=== PATIENT | female | born 2000 | race Asian ===

== ENCOUNTER 2020-04-15 22:30 | Emergency (ER) | payer SELFPAY ==
[~2020-04-15] VITALS: Ht 157.5 cm; Wt 73.0 kg
[2020-04-15 22:38] VITALS: BP 136/84
[2020-04-15 23:40] LABS: BACTERIA,URINE 0 /HPF (0-FEW); BILIRUBIN,URINE NEG (NEG); CLARITY,URINE CLEAR; COLOR,URINE YELLOW; GLUCOSE,URINE NEG (NEG); NITRITE,URINE NEG (NEG); RBC,URINE 0 /HPF (0-2); SQUAMOUS EPITHELIAL CELL,UR OCC /LPF; UROBILINOGEN,URINE 0.2 mg/dL (0.2 mg/dL); WBC,URINE OCC /HPF (0-4)
[2020-04-15 23:52] LABS: INFLUENZA A PATIENT NEGATIVE (NEGATIVE); INFLUENZA B PATIENT NEGATIVE (NEGATIVE)
[2020-04-16] MEDS ORDERED: ONDA4TAB7 PO (00:13)
--- NOTE | 2020-04-16 00:13 | PHYS DOC ---
Past History Past Medical History: No Pertinent History Past Surgical History: No Surgical History Alcohol Use: None Adult General Chief Complaint Chief Complaint: COUGH HPI HPI Patient is a 20-year-old female who presents to the emergency room complaining of diffuse body aches, headache, nausea, cough. This has been ongoing for the last 3 or 4 days. Patient was exposed to novel coronavirus 19 2 weeks ago. She did test last week that was negative. She did take some Tylenol prior to arrival. Patient reports that she is 4 weeks . She denies any lower abdominal pain, cramping, vaginal bleeding, vaginal discharge. She does not have any significant shortness of breath. She denies any difficulty with her daily activities. Review of Systems Review of Systems Complete ROS is negative unless otherwise documented in [facility] Allergies Allergies Allergies Coded Allergies Type Severity Reaction Last Updated Verified No Known Drug Allergies 04/15/20 No Physical Exam Physical Exam General: Awake, alert, NAD. Well Nourished, well hydrated. Cooperative HEENT: Atraumatic, EOMI, PERRL, airway patent, moist oral mucosa Neck: Supple, trachea midline Respiratory: CTA bilaterally, normal effort, no wheezing/crackles CV: RRR, no murmur, cap refill <2 GI: Soft, nondistended, nontender, no masses MSK: No obvious deformities Skin: Warm, dry, intact Neuro: A&O x3, speech NL, sensory and motor grossly intact, no focal deficits Psych: Normal affect, normal mood, not suicidal or homicidal Current Patient Data Vital Signs Vital Signs Date Time Temp Pulse Resp B/P (MAP) Pulse Ox O2 Delivery O2 Flow Rate FiO2 04/15/20 22:38 98.0 82 18 136/84 (101) 98 Room Air Lab Results Laboratory Tests Test 04/15/20 23:00 Urine Collection Type Unknown Urine Color Yellow Urine Clarity Clear Urine pH 6.5 Urine Specific [place] 1.020 Urine Protein Neg (NEG-TRACE) Urine Glucose (UA) Neg mg/dL (NEG) Urine Ketones (Stick) Neg mg/dL (NEG) Urine Blood Neg (NEG) Urine Nitrite Neg (NEG) Urine Bilirubin Neg (NEG) Urine Urobilinogen Dipstick 0.2 mg/dL (0.2 mg/dL) Urine Leukocyte Esterase Neg (NEG) Urine RBC 0 /HPF (0-2) Urine WBC Occ /HPF (0-4) Urine Squamous Epithelial Cells Occ /LPF Urine Bacteria 0 /HPF (0-FEW) Influenza Type A (Rapid) Negative (NEGATIVE) Influenza Type B (Rapid) Negative (NEGATIVE) EKG EKG [] Radiology/Procedures Radiology/Procedures [] Heart Score Risk Factors: Risk Factors: DM, Current or recent (<one month) smoker, HTN, HLP, family history of CAD, obesity. Risk Scores: Risk Factors: DM, Current or recent (<one month) smoker, HTN, HLP, family history of CAD, obesity. Course & Med Decision Making Course & Med Decision Making Pertinent Labs and Imaging studies reviewed. (See chart for details) Patient is 20-year-old previously healthy female at 4 weeks gestation who presents to the emergency room with symptoms that are consistent with novel coronavirus 19. Patient has had an exposure. She is very well-appearing on exam. Influenza swab was done and is negative. UA is negative. At this time I have recommended to the patient that she does symptomatic care. We have discussed strict return precautions. We have discussed quarantine. Patient's test results and vitals while in the ED were fully reviewed and discussed with the patient. Patient is stable and at this time does not need admission to the hospital. We have discussed strict return precautions and the importance of following up with their Primary Care Physician. Patient stated understanding and was given an opportunity to ask any questions. Patient is in agreement with plan. Dragon Disclaimer Dragon Disclaimer This electronic medical record was generated, in whole or in part, using a voice recognition dictation system. Departure Departure: Impression: Primary Impression: Suspected 2019-nCoV infection Disposition: 01 DC HOME SELF CARE/HOMELESS Condition: STABLE Patient Instructions: Medicines During Additional Instructions: Thank you for visiting [facility]. We appreciate you trusting us with your care. If any additional problems come up please don't hesitate to return to visit us. Follow up with your primary care provider so they can plan additional care if needed and know about the problem that you had today. If symptoms worsen come back to the Emergency Department. Any concerning symptoms that start such as chest pain, shortness of air, weakness or numbness on one side of the body, running high fevers or any other concerning symptoms return to the ER. You have a viral syndrome which may include symptoms like muscle aches, fevers, chills, runny nose, cough, sneezing, sore throat, nausea, vomiting, or diarrhea. One of the potential viruses that you may have is SARS-CoV-2, the virus that causes COVID-19, also known as the Coronavirus. You are just as likely to have a different viral infection such as the common cold, flu, etc. Most patients with the Coronavirus have mild symptoms and recover on their own. Resting, staying hydrated, and sleep based on known cases can be helpful. As of todays visit, you are well enough to go home and treat your symptoms with oral fluids and over the counter medications. Coronavirus testing is not performed on most people with mild symptoms who are being discharged from the emergency department. If Coronavirus testing was performed today the results will not be available for possibly up to 3-4 days. If your result is positive you will be contacted. Please follow the following precautions at home: 1. Stay home except to get medical care. 2. As advised by the CDC, we recommend that you stay in your home and minimize contact with other people. We do not want you to spread the infection. 3. Those who are older or have significant medical issues may have more severe symptoms from this infection. We recommend self-isolation FOR AT LEAST 7 DAYS after your 1st day of symptoms. AFTER you feel better please wait AT LEAST ANOTHER WEEK before returning to regular activities and being around other peopl e. 4. IF you become sicker and have difficulty breathing, chest pain, are unable to eat/drink, severe vomiting, diarrhea, or weakness you may need to return to the Emergency Department. 5. You should restrict activities outside of your home, except for getting medical care. DO NOT go to work, school, or public areas. Avoid using public transportation, ride sharing, or taxis. 6. Separate yourself from other people in your home. You should use a separate bathroom if possible. 7. Avoid sharing personal household items such as dishes, cups, eating utensils, towels, etc. 8. Clean all high touch surfaces every day (door knobs, counter tops, etc). Use a household cleaning spray or wipe per label instructions. 9. Clean your hands often. Wash your hands with soap and water for at least 20 seconds. 10. Cover your mouth and nose when you cough or sneeze. 11. Throw used tissues in the trash and immediately wash your hands. For additional resources please visit the CDC website or the [facility] ([phone]), you may also call 211 for further information. Scripts Ondansetron Hcl (ZOFRAN) 4 Mg Tablet 1 TAB PO PRN Q6HRS PRN for NAUSEA, #6 TAB Prov: FAY DIAZ MD 04/16/20 FAY DIAZ MD Apr 16, 2020 00:13
== END 2020-04-16 00:15 | disposition home or self-care (01) ==
LOC: ER 22:30
DX: O26.891 Other specified pregnancy related conditions, first trimester (principal); M79.10 Myalgia, unspecified site; R51.9 Headache, unspecified; R11.0 Nausea; Z20.828 Contact with and (suspected) exposure to other viral communicable diseases; Z3A.01 Less than 8 weeks gestation of pregnancy
CPT/HCPCS: 81001; 87804; 99283; C9803; U0003

== ENCOUNTER 2020-04-18 00:54 | Emergency (ER) | payer OTHER ==
[~2020-04-18] VITALS: Ht 157.5 cm; Wt 73.0 kg
[~2020-04-18 00:54] MED LIST: ONDA4TAB7 PO
--- NOTE | 2020-04-18 00:59 | PHYS DOC ---
Past History Past Medical History: No Pertinent History, Migraines Past Medical History Gravid 1- Est. 5 weeks, Past Surgical History: No Surgical History Alcohol Use: None General Adult HPI: HPI: ". I still geting headaches the past 10 days.. I ve had flu tests.. they are negative.. and two negative COVID test.. I worried because .. I am .. about 6 weeks.. it is my lst .. I am still getting nauseated... My mother had Covid and I am worried I picked it up from her.." Patient is a 20 year old female who presents with above hx and complaints myalgia, arthralgia, malaise, headache, nausea, nonproductive cough, and suspect Covid patient. Headache is described as bandlike around her head. Is present almost every day. Headache seems worse at night. scalp tender to touch. Temporal artery non-tender. Use relieved by morning upon awakening. Pt. seen in emergency room on for similar complaints,. Patient had a negative Covid test on April 15 and a negative Covid test on April 08. Pt. had negative flu tests on previous visit. Urine test previously negative for Ketones, protein and WBC. Has been exposed to Covid by her mother who had a positive Covid test. Patient is on vitamins. No recent travel. No specific ill contacts other than mother. . She is a dependent. 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 He has not had any recent overseas deployments. No sick animal exposures. No history of fevers. Has had viral-like presentations with diffuse body aches nausea and a nonproductive cough. This is patient's first . Patient does have na usea meds but has not filled them yet at [facility]. Patient is adopted from [place] 17 months. Does have adopted family in the area. Patient denies any vision changes. Patient currently declining spinal tap and CT of head. Patient denies any problems of cramping, vaginal bleeding, vaginal discharge, shortness of breath. Patient states headache has been intermittent but daily for the past 12 days. Denies any problems with daily activities. Review of Systems: Review of Systems: Constitutional: Denies fever or chills Eyes: Denies change in visual acuity HENT: Denies nasal congestion or sore throat Respiratory: History nonproductive cough. Denies shortness of breath Cardiovascular: Denies chest pain or edema GI: Denies abdominal pain, vomiting, bloody stools or diarrhea Complaints of nausea : Denies dysuria Musculoskeletal: Denies back pain or joint pain Integument: Denies rash Neurologic: Complaints headache,. Denies focal weakness or sensory changes Endocrine: Denies polyuria or polydipsia Lymphatic: Denies swollen glands Psychiatric: Denies depression or anxiety Family History: Family History: Mother positive Covid Current Medications: Current Meds: See nursing for home meds Allergies: Allergies: Allergies Coded Allergies Type Severity Reaction Last Updated Verified No Known Drug Allergies 04/15/20 No Physical Exam: PE: Constitutional: Well developed, well nourished, no acute distress, non-toxic appearance. [] HENT: Normocephalic, atraumatic, bilateral external ears normal, oropharynx moist, no oral exudates, nose normal. [] Eyes: PERRLA, EOMI, conjunctiva normal, no discharge. Glasses. Fundi benign. Myopia. Neck: Normal range of motion, no tenderness, supple, no stridor. [] Cardiovascular:Heart rate regular rhythm, no murmur [] Lungs & Thorax: Bilateral breath sounds equal apex on auscultation [] Abdomen: Bowel sounds normal, soft, no tenderness, no masses, no pulsatile masses. [] Skin: Warm, dry, no erythema, no rash. [] Back: No tenderness, no CVA tenderness. [] Extremities: No tenderness, no cyanosis, no clubbing, ROM intact, no edema. [] Neurologic: Alert and oriented X 3, normal motor function, normal sensory function, no focal deficits noted. DTRs +2 patella and brachial. Rod Mill Operator equal. No drift. Amatory without problems. Left hand dominant. Psychologic: Affect anxious, judgement normal, mood normal. [] EKG: EKG: My interpretation of EKG shows sinus rhythm at 66 bpm. No acute morphology [] Radiology/Procedures: Radiology/Procedures: [address] [address] IMAGING REPORT Signed PATIENT: ATILIO BOO ACCOUNT: [id number] : 2000 LOCATION: ER AGE: 20 SEX: F EXAM STATUS: REG ER ORD. PHYSICIAN: GEOVANI ALLEN MD REASON: constant headache PROCEDURE: CT HEAD WO CONTRAST CT head without contrast dated 04/18/2020. No comparison available. CLINICAL INDICATION: Headaches for one week. TECHNIQUE: Contiguous axial imaging the head was performed from skull base to vertex. No contrast administered. One or more of the following individualized dose reduction techniques were utilized for this examination: 1. Automated exposure control 2. Adjustment of the mA and/or kV according to patient size 3. Use of iterative reconstruction technique. FINDINGS: Ventricles and sulci are within normal limits for age. No midline shift or mass effect. Brain parenchyma is of normal attenuation. No hemorrhage or extra-axial collection. Posterior fossa and brainstem unremarkable. Visualized paranasal sinuses and mastoid air cells are clear. No apparent calvarial abnormality. IMPRESSION: No evidence of acute intracranial abnormality. Electronically signed by: Mike Dawson MD (04/18/2020 3:36 AM) [facility] [place]ATED AND SIGNED BY: MIKE DAWSON MD DATE: 04/18/20 0335 CC: GEOVANI ALLEN MD; PCP,UNKNOWN ~MTH[address] of head [] Heart Score: HEART Score for Chest Pain: HEART Score for Chest Pain Response (Comments) Value History Slighlty/Non-Suspicious 0 ECG Normal 0 Age < 45 0 Risk Factors No Risk Factors 0 Troponin < Normal Limit 0 Total 0 Risk Factors: Risk Factors: DM, Current or recent (<one month) smoker, HTN, HLP, family history of CAD, obesity. Risk Scores: Score 0 - 3: 2.5% MACE over next 6 weeks - Discharge Home Score 4 - 6: 20.3% MACE over next 6 weeks - Admit for Clinical Observation Score 7 - 10: 72.7% MACE over next 6 weeks - Early Invasive Strategies Course & Med Decision Making: Course & Med Decision Making Pertinent Labs and Imaging studies reviewed. (See chart for details) Risk and benefits of spinal tap discussed with patient. Patient declined spinal tap at this time. Pt. to fill nausea script as directed. May take praveen as needed for nausea. Follow up at [facility]. Return if any concerns. Impression. 1. Viral Syndromne 2. Gravid 1- approxately 6 weeks 3. Headache. 4. Blood Type AB + 5. BHCG= 48,968 [] Dragon Disclaimer: Dragon Disclaimer: This electronic medical record was generated, in whole or in part, using a voice recognition dictation system. Departure Departure: Referrals: PCP,UNKNOWN (PCP) Rose Disclaimer This chart was dictated in whole or in part using Voice Recognition software in a busy, high-work load, and often noisy Emergency Department environment. It may contain unintended and wholly unrecognized errors or omissions. GEOVANI ALLEN MD Apr 18, 2020 00:59
[2020-04-18] MEDS ORDERED: ONDANSETRON PF 4 MG/2 ML VIAL. IVP ONE (02:00)
[2020-04-18] MEDS ORDERED: IV RINGERS SOLUTION,LACTATED 1,000 ML IV SCH (02:00)
--- NOTE | 2020-04-18 02:09 | EKG ---
[address] [address] Test Date: 2020-04-18 Test Time: 02:04:36 Pat Name: ATILIO BOO Department: Room: Gender: F Oyster Opener: : 2000 Requested By: GEOVANI ALLEN Order Number: [id number] Reading MD: Measurements Intervals [place] Rate: 66 P: 35 MN: 170 QRS: 36 QRSD: 78 T: 11 QT: 402 QTc: 423 Interpretive Statements SINUS RHYTHM NORMAL ECG RI6.02 No previous ECG available for comparison
[2020-04-18 03:11] LABS: BASO # 0.2 x10^3/uL (0.0-0.2); BASO % 1 % (0-3); EOS # 0.1 x10^3/uL (0.0-0.7); EOS % 1 % (0-3); HEMATOCRIT 38.9 % (36.0-47.0); LYMPH # 2.9 x10^3/uL (1.0-4.8); LYMPH % 26 % (24-48); MEAN CORPUSCULAR HEMOGLOBIN 21 pg (25-35); MEAN CORPUSCULAR HGB CONC 31 g/dL (31-37); MEAN CORPUSCULAR VOLUME 68 fL (79-100); MONO # 0.9 x10^3/uL (0.0-1.1); MONO % 8 % (0-9); NEUT % 64 % (31-73); PLATELET COUNT 312 x10^3/uL (140-400); RED BLOOD COUNT 5.77 x10^6/uL (3.50-5.40)
[2020-04-18 03:21] LABS: BACTERIA,URINE 0 /HPF (0-FEW); BILIRUBIN,URINE NEG (NEG); CLARITY,URINE CLEAR; COLOR,URINE YELLOW; GLUCOSE,URINE NEG (NEG); NITRITE,URINE NEG (NEG); RBC,URINE 0 /HPF (0-2); SQUAMOUS EPITHELIAL CELL,UR OCC /LPF; UROBILINOGEN,URINE 0.2 mg/dL (0.2 mg/dL)
[2020-04-18 03:26] LABS: CREATININE 0.7 mg/dL (0.6-1.0); GFR 105.6; POTASSIUM 3.8 mmol/L (3.5-5.1)
[2020-04-18 03:27] LABS: AMPHETAMINE/METHAMPHETAMINE NEG (NEG); BARBITURATES NEG (NEG); BENZODIAZEPINES NEG (NEG); CANNABINOIDS NEG (NEG); COCAINE NEG (NEG); METHADONE NEG (NEG); OPIATES NEG (NEG); PHENCYCLIDINE NEG (NEG)
[2020-04-18 03:34] LABS: HYPOCHROMIA MOD; PLT ESTIMATE ADEQUATE (ADEQUATE)
[2020-04-18 03:35] LABS: MICROCYTOSIS MOD
[2020-04-18 03:38] LABS: ALBUMIN 4.1 g/dL (3.4-5.0); DIRECT BILIRUBIN 0.1 mg/dL (0.0-0.2); MAGNESIUM 2.2 mg/dL (1.8-2.4); TOTAL BILIRUBIN 0.3 mg/dL (0.2-1.0); TOTAL PROTEIN 7.9 g/dL (6.4-8.2)
--- NOTE | 2020-04-18 03:38 | RAD ---
CT head without contrast dated 04/18/2020. No comparison available. CLINICAL INDICATION: Headaches for one week. TECHNIQUE: Contiguous axial imaging the head was performed from skull base to vertex. No contrast administered. One or more of the following individualized dose reduction techniques were utilized for this examinat ion: 1. Automated exposure control 2. Adjustment of the mA and/or kV according to patient size 3. Use of iterative reconstruction technique. FINDINGS: Ventricles and sulci are within normal limits for age. No midline shift or mass effect. Brain parench yma is of normal attenuation. No hemorrhage or extra-axial collection. Posterior fossa and brainstem unremarkable. Visualized paranasal sinuses and mastoid air cells are clear. No apparent calvarial abnormality. IMPRESSION: No evidence of acute intracranial abnormality. Electronically signed by: Mike Dawson MD (04/18/2020 3:36 AM) [facility]
[2020-04-18] MEDS ORDERED: oxyCODONE/APAP 5/325 1 TAB TABLET PO ONE (04:00)
[2020-04-18] MEDS ORDERED: oxyCODONE/APAP 5/325 1 TAB TABLET ONE (04:18)
[2020-04-18 04:28] VITALS: BP 125/73
--- NOTE | 2020-04-21 10:50 | NUR ---
IP: attempt to notify patient of COVID result, left callback message.
== END 2020-04-18 04:28 | disposition home or self-care (01) ==
LOC: ER 00:54
DX: B34.9 Viral infection, unspecified (principal); R11.0 Nausea; R05 Cough; G43.909 Migraine, unspecified, not intractable, without status migrainosus
CPT/HCPCS: 36415; 70450; 80048; 80076; 80307; 81001; 82550; 83690; 83735; 83880; 84443; 84484; 84702; 85025; 85610; 86850; 86900; 86901; 87086; 87147; 93005; 96361; 96374; 99285; J2405; J7120

== ENCOUNTER 2020-05-14 03:44 | Emergency (ER) | payer OTHER ==
[~2020-05-14] VITALS: Ht 157.5 cm; Wt 73.0 kg
--- NOTE | 2020-05-14 04:03 | PHYS DOC ---
Past History Past Medical History: No Pertinent History, Migraines (KASEY BLANCO MD) Past Surgical History: No Surgical History (KASEY BLANCO MD) Alcohol Use: None (KASEY BLANCO MD) Adult General HPI HPI Patient is an otherwise healthy 20-year-old female approximately 8 weeks by blood test who presents with a chief complaint of vaginal bleeding. States that at approximately midnight she went to the restroom, wiped and saw some blood on the napkin and over the course of the last few hours has had a little more bleeding. States she is probably had a shot glass or 2 full of blood. Denies any recent traumas, travels, fevers, ill contacts. Denies any alcohol or drug use. Denies any chest pain, shortness of breath, abdominal or pelvic pain, vaginal pain, dyspareunia or recent discharge. States that she has not seen an NURSE MONITORING yet and has not had an ultrasound. (KASEY BLANCO MD) Review of Systems Review of Systems Review of systems otherwise unremarkable except noted in HPI. (KASEY BLANCO MD) Allergies Allergies Allergies Coded Allergies Type Severity Reaction Last Updated Verified No Known Drug Allergies 04/15/20 No (KASEY BLANCO MD) Physical Exam Physical Exam Constitutional: Well developed, well nourished, no acute distress, non-toxic appearance. [] HENT: Normocephalic, atraumatic, b Eyes: PERRLA, EOMI, conjunctiva normal, no discharge. [] Neck: Normal range of motion, Cardiovascular:Heart rate regular rhythm, no murmur [] Lungs & Thorax: Bilateral breath sounds clear to auscultation [] Abdomen: soft, no tenderness, no masses, no pulsatile masses. [] Skin: Warm, dry, no erythema, no rash. [] Back: No tenderness, Extremities: No tenderness, no cyanosis, no clubbing, ROM intact, no edema. [] Neurologic: Alert and oriented X 3, normal motor function, normal sensory function, no focal deficits noted. [] Psychologic: Affect normal, judgement normal, mood normal. [] : On digital exam, no blood noted, no vaginal tenderness or discharge, no cervical tenderness and cervical os was closed (KASEY BLANCO MD) Physical Exam Constitutional: Well developed, well nourished, no acute distress, non-toxic appearance HENT: Normocephalic, atraumatic Eyes: Conjunctiva normal, no discharge Neck: Normal range of motion, no tenderness, supple Lungs & Thorax: No respiratory distress, equal chest rise and fall Abdomen: Soft, no tenderness Skin: Warm, dry, no erythema, no rash Back: No tenderness, no CVA tenderness Extremities: No tenderness, ROM intact, no edema Neurologic: Alert and oriented X 3, no focal deficits noted Psychologic: Affect normal, judgment normal (SUNNY DOWLING DO) EKG EKG [] (KASEY BLANCO MD) Radiology/Procedures Radiology/Procedures [] (KASEY BLANCO MD) Radiology/Procedures PROCEDURE: PREG 1ST TRIMESTER EXAMINATION: US OB 14+ WKS, 05/14/2020 4:53 AM CLINICAL INDICATION: Vaginal bleeding TECHNIQUE: Grayscale, color and spectral Doppler ultrasound images of the pelvis per first trimester protocol COMPARISON: None. FINDINGS: The uterus measures 11.6 x 8.7 x 8.2 cm. There is a gestational sac containing an embryo with crown-rump length of 3.93 cm, consistent with gestational age 10 weeks 6 days. cardiac activity is present with heart rate of 163 bpm. A yolk sac is present. There is a small subchorionic hemorrhage measuring approximately 1.9 x 0.8 cm. The right ovary measures 2.6 x 1.4 1.2 cm. Left ovary measures 2.3 x 1.6 x 1.5 cm. Both ovaries are normal in appearance with normal blood flow. No adnexal mass or free fluid. IMPRESSION: Single living intrauterine with gestational age 10 weeks 6 days by ultrasound. heart rate 163 bpm. Small subchorionic hemorrhage. Electronically signed by: Ghazala Norman MD (05/14/2020 6:03 AM) [id number] (SUNNY DOWLING DO) Heart Score Risk Factors: Risk Factors: DM, Current or recent (<one month) smoker, HTN, HLP, family history of CAD, obesity. Risk Scores: Risk Factors: DM, Current or recent (<one month) smoker, HTN, HLP, family history of CAD, obesity. (KASEY BLANCO MD) Course & Med Decision Making Course & Med Decision Making Patient is a 20-year-old female, approximately 8 weeks by blood test at clinic who presents to the emergency department with light vaginal bleeding, no pain and without any care up-to-date Vital signs not concerning. Physical exam noted above. Cervical os closed on exam with no blood noted. Laboratory analysis not concerning. Serum hCG greater than 51,000. Patient is AB+, antibody negative. Ultrasound read pending. Patient handed off to day team awaiting ultrasound results. Most likely discharge home with follow-up. [] (KASEY BLANCO MD) Course & Med Decision Making 0600- Sign out received from Dr. Blanco for patient with vaginal bleeding in . Awaiting radiology report for US. Patient seen and evaluated by myself. Labs reviewed. ABO: AB +. BHCG 51,501. US with single IUP measuring approximately 10 weeks and 6 days with good heart rate. Small subchorionic hemorrhage noted. Patient stable for discharge with outpatient follow-up with PCP/OB. Discussed findings and plan with patient, who acknowledges understanding and agreement. (SUNNY DOWLING DO) Dragon Disclaimer Dragon Disclaimer This electronic medical record was generated, in whole or in part, using a voice recognition dictation system. (KASEY BLANCO MD) Departure Departure: Impression: Primary Impression: Vaginal bleeding affecting early Additional Impressions: Subchorionic hemorrhage in first trimester Disposition: 01 DC HOME SELF CARE/HOMELESS Condition: STABLE Referrals: PCP,UNKNOWN (PCP) Patient Instructions: ABCs of , Subchorionic Hematoma, Vaginal Bleeding During , [id number] Additional Instructions: Please read all the attached information. Please call your NURSE MONITORING today to discuss your ED visit and set up a post ER follow-up visit as soon as you can. All your labs were normal. Your blood type is AB+ and you are antibody negative on your screen. Your ultrasound showed an intrauterine with a heart rate of 171 with a posterior placenta. Ultrasound did show a small amount of subchorionic bleeding. Please discuss all these findings with your NURSE MONITORING. Please come back to the emergency department with any new or concerning symptoms. Problem Qualifiers Additional Impressions: Weeks of gestation: 10 weeks Qualified Codes: Z3A.10 - 10 weeks gestation of Subchorionic hemorrhage in first trimester Fetus number: single or unspecified fetus Qualified Codes: O41.8X10 - Other specified disorders of amniotic fluid and membranes, first trimester, not applicable or unspecified; O46.8X1 - Other antepartum hemorrhage, first trimester KASEY BLANCO MD May 14, 2020 04:03 SUNNY DOWLING DO May 14, 2020 06:21
[2020-05-14 04:34] LABS: BASO # 0.2 x10^3/uL (0.0-0.2); BASO % 1 % (0-3); EOS # 0.1 x10^3/uL (0.0-0.7); EOS % 1 % (0-3); HEMOGLOBIN 12.2 g/dL (12.0-15.5); LYMPH # 3.1 x10^3/uL (1.0-4.8); LYMPH % 26 % (24-48); MEAN CORPUSCULAR HEMOGLOBIN 21 pg (25-35); MEAN CORPUSCULAR HGB CONC 31 g/dL (31-37); MEAN CORPUSCULAR VOLUME 67 fL (79-100); MONO # 1.1 x10^3/uL (0.0-1.1); MONO % 9 % (0-9); NEUT # 7.3 x10^3uL (1.8-7.7); NEUT % 63 % (31-73); PLATELET COUNT 286 x10^3/uL (140-400); RED BLOOD COUNT 5.84 x10^6/uL (3.50-5.40); RED CELL DISTRIBUTION WIDTH 14.8 % (11.5-14.5); WHITE BLOOD COUNT 11.8 x10^3/uL (4.0-11.0)
[2020-05-14 04:45] LABS: CALCIUM 8.9 mg/dL (8.5-10.1); CREATININE 0.6 mg/dL (0.6-1.0); GFR 126.2; POTASSIUM 3.7 mmol/L (3.5-5.1)
[2020-05-14 04:53] LABS: ANISOCYTOSIS SLIGHT; HYPOCHROMIA SLIGHT; MICROCYTOSIS SLIGHT; PLT ESTIMATE ADEQUATE (ADEQUATE)
--- NOTE | 2020-05-14 06:06 | RAD ---
EXAMINATION: US OB 14+ WKS, 05/14/2020 4:53 AM CLINICAL INDICATION: Vaginal bleeding TECHNIQUE: Grayscale, color and spectral Doppler ultrasound images of the pelvis per first trimester protocol COMPARISON: None. FINDINGS: The uterus measures 11.6 x 8.7 x 8.2 cm. There is a gestational sac containing an embryo with crown-r ump length of 3.93 cm, consistent with gestational age 10 weeks 6 days. cardiac activity is pre sent with heart rate of 163 bpm. A yolk sac is present. There is a small subchorionic hemorrhag e measuring approximately 1.9 x 0.8 cm. The right ovary measures 2.6 x 1.4 1.2 cm. Left ovary measures 2.3 x 1.6 x 1.5 cm. Both ovaries are n ormal in appearance with normal blood flow. No adnexal mass or free fluid. IMPRESSION: Single living intrauterine with gestational age 10 weeks 6 days by ultrasound. heart rate 163 bpm. Small subchorionic hemorrhage. Electronically signed by: Ghazala Norman MD (05/14/2020 6:03 AM) [id number]
[2020-05-14 06:37] VITALS: BP 118/64
== END 2020-05-14 06:37 | disposition home or self-care (01) ==
LOC: ER 03:44
DX: O46.8X1 Other antepartum hemorrhage, first trimester (principal); Z3A.10 10 weeks gestation of pregnancy; G43.909 Migraine, unspecified, not intractable, without status migrainosus
CPT/HCPCS: 36415; 76801; 80048; 84702; 85025; 86850; 86900; 86901; 99284